=== PATIENT | male | born 1985 | race Caucasian/White ===

== ENCOUNTER 2020-04-09 08:36 | Emergency (ER) | payer MEDICAID ==
[~2020-04-09] VITALS: Ht 182.9 cm; Wt 87.5 kg
[2020-04-09 08:50] VITALS: Ht 182.9 cm; Wt 87.5 kg
[2020-04-09 11:46] VITALS: BP 111/82
== END 2020-04-09 11:46 | disposition home or self-care (01) ==
LOC: ED 08:36
DX: R42 Dizziness and giddiness (principal); E86.0 Dehydration; F15.10 Other stimulant abuse, uncomplicated
CPT/HCPCS: 82962; J8597